=== PATIENT | female | born 1945 | race Two or more races ===

== ENCOUNTER → 2017-08-16 | Emergency (ER) | payer OTHER ==
[~2017-08-16] VITALS: Ht 157.5 cm; Wt 79.4 kg
[~2017-08-16] MED LIST: METFORMIN HCL500 MG PO; ZESTORETIC 20-1 EAC1 PO
== END | disposition home or self-care (01) ==
LOC: ER 20:08
DX: K59.09 Other constipation (principal); R10.84 Generalized abdominal pain

== ENCOUNTER 2019-06-20 09:57 | Emergency (ER) | payer OTHER ==
[~2019-06-20] VITALS: Ht 157.5 cm; Wt 74.8 kg
[2019-06-20] MEDS ORDERED: LIPOFEN50 MG (10:20)
[2019-06-20] MEDS ORDERED: ZITHROMAX500 MG PO (13:02)
== END 2019-06-20 13:23 | disposition home or self-care (01) ==
LOC: ER 09:57
DX: B33.8 Other specified viral diseases (principal); B96.0 Mycoplasma pneumoniae [M. pneumoniae] as the cause of diseases classified elsewhere

== ENCOUNTER 2020-07-06 10:08 | Outpatient (CLI) | payer OTHER ==
[~2020-07-06 10:08] MED LIST changes: +LIPOFEN50 MG; +ZITHROMAX500 MG PO
== END 2020-07-06 10:16 | disposition home or self-care (01) ==
LOC: RX STUDY 10:08
PROVIDERS: ATTEND Internal Medicine Pulmonary Disease
DX: J98.6 Disorders of diaphragm (principal); I10 Essential (primary) hypertension; J44.9 Chronic obstructive pulmonary disease, unspecified; E78.2 Mixed hyperlipidemia; E11.9 Type 2 diabetes mellitus without complications

== ENCOUNTER 2022-08-20 12:13 | Emergency (ER) | payer OTHER ==
[~2022-08-20] VITALS: Ht 157.5 cm; Wt 76.2 kg
== END 2022-08-20 14:50 | disposition home or self-care (01) ==
LOC: ER 12:13
DX: S00.83XA Contusion of other part of head, initial encounter (principal); W18.39XA Other fall on same level, initial encounter; Y93.89 Activity, other specified; Y92.480 Sidewalk as the place of occurrence of the external cause; S89.82XA Other specified injuries of left lower leg, initial encounter; E11.9 Type 2 diabetes mellitus without complications; Z79.84 Long term (current) use of oral hypoglycemic drugs; I10 Essential (primary) hypertension; M17.12 Unilateral primary osteoarthritis, left knee

== ENCOUNTER 2022-11-27 12:10 | Outpatient (CLI) | payer OTHER | END 2022-11-27 12:18 | disposition home or self-care (01) | LOC: RAD 12:10 | PROVIDERS: ATTEND Internal Medicine Pulmonary Disease | DX: I10 Essential (primary) hypertension (principal); J98.6 Disorders of diaphragm; E04.2 Nontoxic multinodular goiter; E11.9 Type 2 diabetes mellitus without complications; K76.0 Fatty (change of) liver, not elsewhere classified ==